=== PATIENT | female | born 1935 ===

== ENCOUNTER 2019-04-01 11:10 | Emergency (ER) | payer OTHER ==
[~2019-04-01] VITALS: Ht 162.6 cm; Wt 65.8 kg
[2019-04-01] MEDS ORDERED: ELIQUIS5 MG (11:30)
[2019-04-01] MEDS ORDERED: NORVASC2.5 M1 (11:31)
[2019-04-01] MEDS ORDERED: COZAAR50 MG (11:31)
[2019-04-01] MEDS ORDERED: MECLIZINE HCL12.5 MG (11:32)
== END 2019-04-01 13:01 | disposition home or self-care (01) ==
LOC: ER 11:10 → EDBD 11:48 → ER 11:48
DX: S00.83XA Contusion of other part of head, initial encounter (principal); R55 Syncope and collapse; W18.09XA Striking against other object with subsequent fall, initial encounter; Y93.89 Activity, other specified; Y92.89 Other specified places as the place of occurrence of the external cause; Y99.8 Other external cause status